=== PATIENT | female | born 1990 | race Caucasian/White ===

== ENCOUNTER → 2016-11-28 | Outpatient (CLI) | payer BC | END | disposition home or self-care (01) | LOC: MW.NM 06:47 | PROVIDERS: ATTEND Psychiatry & Neurology Neuromuscular Medicine | DX: Z91.89 Other specified personal risk factors, not elsewhere classified (principal) | CPT/HCPCS: 95816 ==

== ENCOUNTER 2017-05-26 18:38 | Emergency (ER) | payer BC ==
--- NOTE | 2017-05-26 19:03 | EDM.PDOC ---
ED HPI GENERAL MEDICAL PROBLEM - General Stated Complaint: BLOOD CLOT IN LT LEG Time Seen by Provider: 05/26/17 18:55 - History of Present Illness INITIAL COMMENTS - FREE TEXT/NARRATIVE: HISTORY AND PHYSICAL: History of present illness: Patient is a 19-year-old female is brought to 37 weeks who presents with a concern of left leg swelling and mild discomfort she denies history of DVT denies shortness of breath chest pain abdominal pain vaginal discharge bleeding or other complaints states her has been doing well she is followed by Dr. Acosta who she spoke with the and I recommended referral to the ER. Review of systems: As per history of present illness and below otherwise all systems reviewed and negative. Past medical history: As per history of present illness and as reviewed below otherwise noncontributory. Surgical history: As per history of present illness and as reviewed below otherwise noncontributory. Social history: No reported history of drug or alcohol abuse. Family history: As per history of present illness and as reviewed below otherwise noncontributory. Physical exam: HEENT: Atraumatic, normocephalic, pupils reactive, negative for conjunctival pallor or scleral icterus, mucous membranes moist, throat clear, neck supple, nontender, trachea midline. Lungs: Clear to auscultation, breath sounds equal bilaterally, chest nontender. Heart: S1S2, regular, negative for clicks, rubs, or JVD. Abdomen: Soft, gravid uterus consistent with dates noted nontender heart tones pending. Negative for masses or hepatosplenomegaly. Negative for costovertebral tenderness. Pelvis: Stable nontender. Genitourinary: Deferred. Rectal: Deferred. Extremities: Atraumatic, negative for cords or calf pain. Neurovascular unremarkable. Patient does have some edema to her left leg with some mild tenderness posteriorly this is not well localized is no cords appreciated Neuro: Awake, alert, oriented. Cranial nerves II through XII unremarkable. Cerebellum unremarkable. Motor and sensory unremarkable throughout. Exam nonfocal. Diagnostics: heart tones venous Doppler left lower extremity Therapeutics: To be determined Impression: #137 week intrauterine #2 left lower extremity edema Definitive disposition and diagnosis as appropriate pending reevaluation and review of above. - Related Data Allergies Allergy/AdvReac Type Severity Reaction Status Date / Time No Known Allergies Allergy Verified 05/26/17 19:03 Home Meds: Home Meds . 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: Psychiatric History: Reports: Anxiety - Past Surgical History Cardiovascular Surgical History: Reports: Other (See Below) Other Cardiovascular Surgeries/Procedures: heart surgery as an for "ronda " 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 GI Surgical History: Reports: Other (See Below) Other GI Surgeries/Procedures: hernia repair as infant Female Surgical History: Reports: Section Social & Family History - Family History Neurological: Reports: Cerebral Palsy, CVA Psychiatric: Reports: Autism - Tobacco Use Smoking Status *Q: Never Smoker Years of Tobacco use: 8 Used Tobacco, but Quit: No Second Hand Smoke Exposure: No - Alcohol Use Days Per Week of Alcohol Use: 2 Number of Drinks Per Day: 7 Total Drinks Per Week: 14 - Recreational Drug Use Recreational Drug Use: No ED ROS GENERAL - Review of Systems Review Of Systems: ROS reveals no pertinent complaints other than HPI. ED EXAM, GENERAL - Physical Exam Exam: See Below (See dictation) Course - Vital Signs Last Recorded V/S: Last Vital Signs Temp 36.8 C 05/26/17 19:00 Pulse 91 05/26/17 19:00 Resp 18 05/26/17 19:00 BP 122/88 05/26/17 19:00 Pulse Ox 96 05/26/17 19:00 - Orders/Labs/Meds Orders: Active Orders 24 hr Category Date Time Status Venous Doppler Lwr Ext Lt [US] Stat Exams 05/26/17 19:00 Taken Departure - Departure Time of Disposition: 20:25 Disposition: Home, Self-Care 01 Condition: Good Clinical Impression: Third trimester , Peripheral edema - Discharge Information Additional Instructions: The following information is given to patients seen in the emergency department who are being discharged to home. This information is to outline your options for follow-up care. We provide all patients seen in our emergency department with a follow-up referral. The need for follow-up, as well as the timing and circumstances, are variable depending upon the specifics of your emergency department visit. If you don't have a primary care physician on staff, we will provide you with a referral. We always advise you to contact your personal physician following an emergency department visit to inform them of the circumstance of the visit and for follow-up with them and/or the need for any referrals to a consulting specialist. The emergency department will also refer you to a specialist when appropriate. This referral assures that you have the opportunity for followup care with a specialist. All of these measure are taken in an effort to provide you with optimal care, which includes your followup. Under all circumstances we always encourage you to contact your private physician who remains a resource for coordinating your care. When calling for followup care, please make the office aware that this follow-up is from your recent emergency room visit. If for any reason you are refused follow-up, please contact the [facility] emergency department at and asked to speak to the emergency department charge nurse. Follow-up primary medical doctor/OB gynecology 1-2 days return as needed as discussed - My Orders Last 24 Hours: My Active Orders 05/26/17 19:00 Venous Doppler Lwr Ext Lt [US] Stat - Assessment/Plan Last 24 Hours: My Active Orders 05/26/17 19:00 Venous Doppler Lwr Ext Lt [US] Stat
[2017-05-26 20:55] VITALS: BP 117/75
--- NOTE | 2017-05-27 10:08 | US ---
EXAM DATE: 05/26/17 PATIENT'S AGE: 27 Patient: FINN VALADEZ Facility: [place], [place] Site . Site : 1990 Study: US Extremity Left [id number] 7:41:28 PM Ordering Physician: Doctor Lares Final Report: INDICATION: PAIN LEFT CALF TECHNIQUE: Ultrasound venous duplex lower left extremity. Compression venous exam was performed using aguillon-scale, color Doppler, and spectral Doppler analysis. COMPARISON: None FINDINGS: Sonographic imaging demonstrates the left common femoral, deep femoral, superficial femoral, popliteal, posterior tibial and greater saphenous and the contralateral right common femoral veins to be fully compressible with normal color Doppler blood flow. IMPRESSION: No evidence of deep venous thrombosis within the left lower extremity. Dictated by Hang Díaz MD @ 05/26/2017 8:02:43 PM Dictated by: Hang Díaz MD @ 05/26/2017 20:04:40 (Electronic Signature) Report Signed by Proxy. [email or web address]
== END 2017-05-26 20:36 | disposition home or self-care (01) ==
LOC: MW.ED 18:38
DX: O12.03 Gestational edema, third trimester (principal); Z3A.37 37 weeks gestation of pregnancy
CPT/HCPCS: 93971-26-LT; 93971-LT; 99282; 99283-25

== ENCOUNTER 2017-06-09 05:12 | Inpatient (IN) | payer BC ==
--- NOTE | 2017-05-09 22:34 | PCM.SN ---
- Free Text/Narrative Note: 27yo @ 34w6d ( d,8) , Previous X 1presenting with contraction. patient seen in triage 1 week ago with same complains . she recieved terbutaline. Patient examined at bedside. Speculum;- cervical os closed . VE: Ft/L/P . FFN negative , EFM:- cat 1 , toco; irregular contraction VSS; 125/64 A/P: contraction , Hx of Previous Plan; Nifedipine X 2 doses , contraction improved patient felt better Betamethasone X 2 doses labor precautions give Follow up in clinic as scheduled GBS , GC and FFN done
[2017-06-09] MEDS ORDERED: ceFAZolin 2 GM in Premix Bag 1 BAG IV ONE (05:20)
[2017-06-09] MEDS ORDERED: Sodium Chloride 0.9% 10 ML Syringe FLUSH PRN (05:20)
[2017-06-09] MEDS ORDERED: Sodium Chloride 0.9% 2.5 ML Syringe FLUSH PRN (05:20)
[2017-06-09] MEDS ORDERED: Lactated Ringers 1,000 ML IV SCH (05:30)
[2017-06-09] MEDS ORDERED: Citric Acid/Sodium Citrate Solution 30 ML Cup PO SCH (05:30)
[2017-06-09] MEDS ORDERED: Oxytocin/0.9 % Sodium Chloride 30 UNIT/500 ML BAG IV SCH (05:30)
[2017-06-09] MEDS ORDERED: Sodium Chloride 0.9% 20 ML ONE (07:13)
[2017-06-09] MEDS ORDERED: ceFAZolin 1 GM Vial ONE (07:13)
[2017-06-09] MEDS ORDERED: Oxytocin 10 Units/1 ML SDV ONE (07:13)
[2017-06-09] MEDS ORDERED: Morphine PF 10 MG/10 ML SDV ONE (07:13)
[2017-06-09] MEDS ORDERED: Ondansetron 4 MG/2 ML SDV ONE (07:13)
[2017-06-09] MEDS ORDERED: Water For Injection, Sterile 20 ML ONE (07:15)
--- NOTE | 2017-06-09 07:43 | PCM.PREANE ---
Preanesthetic Assessment - Anesthesia/Transfusion/Family Hx Anesthesia History: Prior Anesthesia Without Reaction Transfusion History: No Prior Transfusion(s) - Review of Systems General: No Symptoms Pulmonary: No Symptoms Cardiovascular: No Symptoms Gastrointestinal: No Symptoms Neurological: No Symptoms Other: Reports: None - Physical Assessment NPO Status Date: 06/09/17 NPO Status Time: 00:01 Height: 5 ft Weight: 71.668 kg ASA Class: 2 Mental Status: Alert & Oriented x3 Airway Class: Mallampati = 2 Dentition: Reports: Normal Dentition Thyro-Mental Finger Breadths: 3 Mouth Opening Finger Breadths: 3 ROM/Head Extension: Full Lungs: Clear to Auscultation, Normal Respiratory Effort Cardiovascular: Regular Rate, Regular Rhythm - Lab Values: Laboratory Last Values WBC 10.69 K/uL (4.0-11.0) 06/09/17 05:51 RBC 4.01 M/uL (4.30-5.90) L 06/09/17 05:51 Hgb 13.2 g/dL (12.0-16.0) 06/09/17 05:51 Hct 37.9 % (36.0-46.0) 06/09/17 05:51 MCV 94.5 fL (80.0-98.0) 06/09/17 05:51 MCH 32.9 pg (27.0-32.0) H 06/09/17 05:51 MCHC 34.8 g/dL (31.0-37.0) 06/09/17 05:51 RDW Std Deviation 44.0 fl (28.0-62.0) 06/09/17 05:51 RDW Coeff of Veronica 13 % (11.0-15.0) 06/09/17 05:51 Plt Count 166 K/uL (150-400) 06/09/17 05:51 MPV 10.70 fL (7.40-12.00) 06/09/17 05:51 Nucleated RBC % 0.0 /100WBC 06/09/17 05:51 Nucleated RBCs # 0 K/uL 06/09/17 05:51 Blood Type O POSITIVE 06/09/17 05:51 Antibody Screen NEGATIVE 06/09/17 05:51 - Allergies Allergies/Adverse Reactions: Allergies Allergy/AdvReac Type Severity Reaction Status Date / Time No Known Allergies Allergy Verified 05/26/17 19:03 - Acknowledgements Anesthesia Type Planned: General Anesthesia, Spinal Pt an Appropriate Candidate for the Planned Anesthesia: Yes Alternatives and Risks of Anesthesia Discussed w Pt/Guardian: Yes Pt/Guardian Understands and Agrees with Anesthesia Plan: Yes PreAnesthesia Questionnaire - Past Health History Medical/Surgical History: Denies Medical/Surgical History HEENT History: Reports: Other (See Below) Other HEENT History: wears glasses for reading Cardiovascular History: Reports: Heart Murmur, Other (See Below) Other Cardiovascular History: states has heart surgery as an due to murmur Respiratory History: Reports: Other (See Below) (Previous smoker, quit 7 months ago) Gastrointestinal History: Reports: GERD (controlled on PO Rx) Genitourinary History: Reports: None KIDNEY TRIMMER History: Reports: : 2 Para: 1 LMP (Approximate): Musculoskeletal History: Reports: None Neurological History: Reports: Seizure Other Neuro History: last seizure was 3 to 4 months ago Psychiatric History: Reports: Anxiety Endocrine/Metabolic History: Reports: None Hematologic History: Reports: None Immunologic History: Reports: None Oncologic (Cancer) History: Reports: None Dermatologic History: Reports: None - Past Surgical History Head Surgeries/Procedures: Reports: None GI Surgical History: Reports: Hernia, Inguinal Female Surgical History: Reports: Section - SUBSTANCE USE Smoking Status *Q: Never Smoker Tobacco Use Within Last Twelve Months: Cigarettes Second Hand Smoke Exposure: No Days Per Week of Alcohol Use: 2 Number of Drinks Per Day: 7 Total Drinks Per Week: 14 Recreational Drug Use History: No - HOME MEDS Home Medications: Home Meds Lansoprazole [Prevacid] 30 mg PO DAILY PRN 06/05/17 [History] Ondansetron [Zofran] 1 tab PO ASDIRECTED PRN 06/05/17 [History] Vit W-Ca,Fe,FA(<1 mg) [ Vitamins] 1 tab PO DAILY 06/05/17 [ History] lamoTRIgine [Lamotrigine] 2 tab PO BID 06/05/17 [History] - CURRENT (IN HOUSE) MEDS Current Meds: Current Medications Citric Acid/Sodium Citrate (Bicitra Solution) 30 ml PO .ONCE NIKKO Last Admin: 06/09/17 07:37 Dose: 30 ml Lactated Ringer's (Ringers, Lactated) 1,000 mls @ 500 mls/hr IV .BOLUS NIKKO Last Admin: 06/09/17 07:32 Dose: 500 mls/hr Oxytocin/Sodium Chloride (Oxytocin 30 Unit/500 Ml-Ns) 30 unit in 500 mls @ 250 mls/hr IV TITRATE NIKKO Sodium Chloride (Saline Flush) 10 ml FLUSH ASDIRECTED PRN PRN Reason: Keep Vein Open Sodium Chloride (Saline Flush) 2.5 ml FLUSH ASDIRECTED PRN PRN Reason: Keep Vein Open Discontinued Medications Cefazolin Sodium (Ancef) Confirm Administered Dose 2 gm .ROUTE .STK-MED ONE Stop: 06/09/17 07:14 Cefazolin Sodium/Dextrose 2 gm (/ Premix) 50 mls @ 100 mls/hr IV ONETIME ONE Stop: 06/09/17 05:49 Sodium Chloride (Normal Saline) Confirm Administered Dose 20 mls @ as directed .ROUTE .STK-MED ONE Stop: 06/09/17 07:14 Sterile Water (Sterile Water For Injection) Confirm Administered Dose 20 mls @ as directed .ROUTE .STK-MED ONE Stop: 06/09/17 07:16 Morphine Sulfate (Duramorph Pf) Confirm Administered Dose 10 mg .ROUTE .STK-MED ONE Stop: 06/09/17 07:14 Ondansetron HCl (Zofran) Confirm Administered Dose 4 mg .ROUTE .STK-MED ONE Stop: 06/09/17 07:14 Oxytocin (Pitocin) Confirm Administered Dose 20 unit .ROUTE .STK-MED ONE Stop: 06/09/17 07:14
[2017-06-09] MEDS ORDERED: ePHEDrine 50 MG/ML SDV ONE ×2 (08:09→09:40)
[2017-06-09] MEDS ORDERED: Octyl 2-Cyanoacrylate 1 Tube ONE (08:47)
--- NOTE | 2017-06-09 08:57 | PCM.OPNOTE ---
- General Post-Op/Procedure Note Date of Surgery/Procedure: 06/09/17 Operative Procedure(s): repeat low transverse Findings: Liveborn female 04/12 weight 4265 grams, normal pelvis with bladder adhesions to the lower uterine segment, left side. Pre Op Diagnosis: 39 weeks prior , desires repeat. Post-Op Diagnosis: Same Anesthesia Technique: Spinal Primary Surgeon: Elizabeth Acosta Anesthesia Provider: Telly Pearson Receiving Clerk: Reynaldo Felder Pathology: none Fluid Replacement, Intraop: 1,200 EBL in mLs: 500 Complications: None Known Condition: Good
[2017-06-09] MEDS ORDERED: Bisacodyl 10 MG Supp RECTAL PRN (08:58)
[2017-06-09] MEDS ORDERED: Lanolin 100% Cream 7 GM Tube TOP PRN (08:58)
[2017-06-09] MEDS ORDERED: Ondansetron 4 MG/2 ML SDV IV PRN (08:58)
[2017-06-09] MEDS ORDERED: Acetaminophen/oxyCODONE 325-5 MG Tab PO PRN (08:58)
[2017-06-09] MEDS ORDERED: diphenhydrAMINE 50 MG/ML SDV IVPUSH PRN ×2 (08:58→09:04)
[2017-06-09] MEDS ORDERED: Nalbuphine 10 MG/1 ML Vial IVPUSH PRN (09:04)
[2017-06-09] MEDS ORDERED: Naloxone 0.4 MG/ML Syringe IVPUSH PRN (09:04)
[2017-06-09] MEDS ORDERED: fentaNYL 100 MCG/2 ML SDV IVPUSH PRN (09:04)
[2017-06-09] MEDS: Ketorolac 30 MG/ML SDV IVPUSH SCH ×3 (09:37→20:43)
--- NOTE | 2017-06-09 09:53 | PCM.POSTAN ---
POST ANESTHESIA ASSESSMENT - MENTAL STATUS Mental Status: Alert, Oriented - RESPIRATORY Respiratory Status: Respiratory Rate WNL, Airway Patent, O2 Saturation Stable - CARDIOVASCULAR CV Status: Pulse Rate WNL, Blood Pressure Stable - GASTROINTESTINAL GI Status: No Symptoms - POST OP HYDRATION Hydration Status: Adequate & Stable
--- NOTE | 2017-06-09 10:20 | OR ---
SURGEON: Elizabeth Acosta M.D. DATE OF PROCEDURE: 06/09/2017 PREOPERATIVE DIAGNOSIS: A 39-week intrauterine , prior delivery, desires repeat. POSTOPERATIVE DIAGNOSIS: A 39-week intrauterine , prior delivery, desires repeat and macrosomia. ANESTHESIA: Spinal. ESTIMATED BLOOD LOSS: 500 mL. FLUIDS: 1200 mL crystalloid. FINDINGS: Liveborn female, score 9 and 9, weighing 4265 g. Normal-appearing uterus, tubes, and ovaries with adherent bladder on the right lower uterine segment. COMPLICATIONS: None known. DISPOSITION: Stable to recovery. BRIEF HISTORY: This is a 27-year-old female. She is G2, P1. She presents at 39 weeks' gestation for a repeat delivery with risks discussed including bleeding, infection, injury to bowel, bladder, blood vessels, or other organs, and risk of thromboembolic event. Understanding all these risks, she does desire to proceed. DESCRIPTION OF PROCEDURE: With the patient in left tilt position, under adequate spinal analgesia, the abdomen was prepped with chlorhexidine and draped in usual fashion for abdominal surgery. SCDs were in place. Hernandez catheter had been placed and she had received 2 g of Ancef IV. After an appropriate time-out was held, documentation of adequate analgesia was performed and the cicatrix was excised with a scalpel. The transverse curvilinear incision was then carried through the subcutaneous tissue to the fascia, which was scored transversely in the midline. The fascial incision was extended laterally using curved Bae scissors. Fascia was elevated from the underlying rectus muscle using sharp and blunt dissection. The finger was used to enter the abdominal cavity and there were no adhesions to the anterior abdominal wall. This incision was extended using sharp and blunt dissection. The Paulo-O retractor was placed. The visceroperitoneum over the lower uterine segment was incised to develop an adequate bladder flap. The transverse curvilinear incision was made over the lower uterine segment with a scalpel. A finger was used to enter the amniotic cavity. Clear fluid was noted. The incision was extended using blunt dissection. The head was delivered via the uterine incision. The was bulb suctioned by nose and mouth with subsequent delivery of the 's shoulders and body without any difficulty. The was bulb suctioned again. Cord was clamped x2 and cut, and the infant was handed to the nurse in attendance at delivery. The infant is a liveborn female, score 9 and 9, weighing 4265 g. Cord blood was collected for cord ABGs as well as routine cord blood sampling. The placenta was removed with fundal massage and the uterus was cleaned with a dry laparotomy tape. The cervix was opened with a ring forceps. The uterine incision was closed with a running lock suture of 0 Polysorb followed by an imbricating layer of 0 Polysorb. There were noted to be some adhesions on the right lower uterine segment. I did have the bladder back filled to delineate the upper limit of the bladder and this was well below the incision line, therefore, the bladder was again released. Any further areas of bleeding were controlled with 2 figure-of- eight sutures. The posterior cul-de-sac pericolic gutters were cleaned and irrigated. The uterine incision was carefully inspected and it was completely hemostatic. The Paulo-O retractor was removed. The uterine incision was again inspected and it remained hemostatic. The rectus muscle and peritoneum were loosely approximated in the midline using a running mattress suture of 0 Polysorb. The posterior aspect of the fascia was inspected and was hemostatic; therefore, the fascial incision was closed with a running suture of 0 Polysorb. Subcutaneous tissue was irrigated. Any areas of bleeding that were noted were cauterized. The skin was closed with a running subcuticular suture of 3-0 Polysorb followed by skin glue. Final sponge, needle, and instrument counts were reported as correct. There were no known complications. The patient was transferred to recovery in good condition. SHAY NEELY /[id number]
[2017-06-09] MEDS: Docusate Sodium 100 MG Cap PO SCH ×2 (10:35→20:42)
[2017-06-09] MEDS ORDERED: fentaNYL 100 MCG/2 ML SDV ONE (10:49)
[2017-06-09] MEDS: Lactated Ringers 1,000 ML IV SCH ×2 (11:42→19:27)
[2017-06-09] MEDS: lamoTRIgine 100 MG Tab PO SCH (20:42)
[2017-06-09] MEDS: Acetaminophen/oxyCODONE 325-5 MG Tab PO PRN (20:43)
[2017-06-09] MEDS ORDERED: lamoTRIgine 25 MG Tab PO SCH ×2 (21:00)
[2017-06-10] MEDS: Acetaminophen/oxyCODONE 325-5 MG Tab PO PRN ×5 (01:10→23:25)
[2017-06-10] MEDS: Ketorolac 30 MG/ML SDV IVPUSH SCH ×2 (02:37→09:06)
--- NOTE | 2017-06-10 08:17 | PCM.PNPP ---
<Karen Maurice - Last Filed: 06/10/17 08:14> - General Info Date of Service: 06/10/17 Functional Status: Reports: Pain Controlled, Tolerating Diet, Ambulating, Urinating - Review of Systems General: Denies: Fever, Weakness, Fatigue Pulmonary: Denies: Shortness of Breath, Pleuritic Chest Pain, Cough Cardiovascular: Denies: Chest Pain, Palpitations, Dyspnea on Exertion Gastrointestinal: Denies: Abdominal Pain Genitourinary: Denies: Dysuria - General Info Date of Service: 06/10/17 - Patient Data Vital Signs - Most Recent: Last Vital Signs Temp 37.0 C 06/10/17 07:00 Pulse 89 06/10/17 08:00 Resp 16 06/10/17 08:00 BP 106/60 06/10/17 07:00 Pulse Ox 98 06/10/17 08:00 Weight - Most Recent: 71.668 kg I&O - Last 24 Hours: Intake & Output 06/09/17 06/10/17 06/10/17 22:59 06:59 14:59 Intake Total 804 Output Total 620 300 Balance 184 -300 Lab Results - Last 24 Hours: Laboratory Results - last 24 hr 06/10/17 Range/Units 04:52 Hgb 10.8 L (12.0-16.0) g/dL Hct 32.2 L (36.0-46.0) % Med Orders - Current: Current Medications Bisacodyl (Dulcolax) 10 mg RECTAL .ONCE PRN PRN Reason: Constipation Diphenhydramine HCl (Benadryl) 25 mg IVPUSH Q6H PRN PRN Reason: Itching or Nausea Diphenhydramine HCl (Benadryl) 25 mg IVPUSH Q4H PRN PRN Reason: Itching Stop: 06/10/17 09:05 Docusate Sodium (Colace) 100 mg PO BID NIKKO Last Admin: 06/09/17 20:42 Dose: 100 mg Emollient Ointment (Lansinoh Hpa) 0 gm TOP ASDIRECTED PRN PRN Reason: Sore Nipples Fentanyl (Sublimaze) 50 mcg IVPUSH Q45M PRN PRN Reason: Pain (severe 7-10) Stop: 06/10/17 09:05 Lactated Ringer's (Ringers, Lactated) 1,000 mls @ 125 mls/hr IV ASDIRECTED [facility] Last Admin: 06/09/17 19:27 Dose: 125 mls/hr Ibuprofen (Motrin) 800 mg PO Q8H PRN PRN Reason: mild pain or fever Ketorolac Tromethamine (Toradol) 30 mg IVPUSH Q6H NIKKO Stop: 06/10/17 09:01 Last Admin: 06/10/17 02:37 Dose: 30 mg Lamotrigine (Lamotrigine) 100 mg PO BEDTIME NIKKO Last Admin: 06/09/17 20:42 Dose: 100 mg Nalbuphine HCl (Nubain) 5 mg IVPUSH Q3H PRN PRN Reason: Pruritis Stop: 06/10/17 09:05 Last Admin: 06/09/17 09:33 Dose: 5 mg Naloxone HCl (Narcan) 0.1 mg IVPUSH ONETIME PRN PRN Reason: Respiratory Depression Stop: 06/10/17 09:05 Ondansetron HCl (Zofran) 4 mg IV Q4H PRN PRN Reason: Nausea/Vomiting Oxycodone/Acetaminophen (Percocet 325-5 Mg) 1 tab PO Q4H PRN PRN Reason: Pain (moderate 4-6) Oxycodone/Acetaminophen (Percocet 325-5 Mg) 2 tab PO Q4H PRN PRN Reason: Pain (moderate 4-6) Last Admin: 06/10/17 05:02 Dose: 2 tab Prenat Multivit/[place]/Iron/Folic Ac ( Mtr) 1 each PO DAILY NIKKO Discontinued Medications Cefazolin Sodium (Ancef) Confirm Administered Dose 2 gm .ROUTE .STK-MED ONE Stop: 06/09/17 07:14 Citric Acid/Sodium Citrate (Bicitra Solution) 30 ml PO .ONCE NIKKO Last Admin: 06/09/17 07:37 Dose: 30 ml Ephedrine Sulfate (Ephedrine Sulfate) Confirm Administered Dose 50 mg .ROUTE .STK-MED ONE Stop: 06/09/17 08:10 Ephedrine Sulfate (Ephedrine Sulfate) Confirm Administered Dose 50 mg .ROUTE .STK-MED ONE Stop: 06/09/17 09:41 Fentanyl (Sublimaze) Confirm Administered Dose 100 mcg .ROUTE .STK-MED ONE Stop: 06/09/17 10:50 Cefazolin Sodium/Dextrose 2 gm (/ Premix) 50 mls @ 100 mls/hr IV ONETIME ONE Stop: 06/09/17 05:49 Lactated Ringer's (Ringers, Lactated) 1,000 mls @ 500 mls/hr IV .BOLUS NIKKO Last Admin: 06/09/17 07:32 Dose: 500 mls/hr Oxytocin/Sodium Chloride (Oxytocin 30 Unit/500 Ml-Ns) 30 unit in 500 mls @ 250 mls/hr IV TITRATE NIKKO Sodium Chloride (Normal Saline) Confirm Administered Dose 20 mls @ as directed .ROUTE .STK-MED ONE Stop: 06/09/17 07:14 Sterile Water (Sterile Water For Injection) Confirm Administered Dose 20 mls @ as directed .ROUTE .STK-MED ONE Stop: 06/09/17 07:16 Lamotrigine (Lamotrigine) 50 mg PO BEDTIME NIKKO Lamotrigine (Lamotrigine) 100 mg PO BEDTIME NIKKO Morphine Sulfate (Duramorph Pf) Confirm Administered Dose 10 mg .ROUTE .STK-MED ONE Stop: 06/09/17 07:14 Octyl Cyanoacrylate (Dermabond Advance) Confirm Administered Dose 1 applic .ROUTE .STK-MED ONE Stop: 06/09/17 08:48 Ondansetron HCl (Zofran) Confirm Administered Dose 4 mg .ROUTE .STK-MED ONE Stop: 06/09/17 07:14 Oxytocin (Pitocin) Confirm Administered Dose 20 unit .ROUTE .STK-MED ONE Stop: 06/09/17 07:14 Sodium Chloride (Saline Flush) 10 ml FLUSH ASDIRECTED PRN PRN Reason: Keep Vein Open Sodium Chloride (Saline Flush) 2.5 ml FLUSH ASDIRECTED PRN PRN Reason: Keep Vein Open - Infant Interaction Infant Disposition, : in Room with Family Interaction: Holding Feeding: Bottle Fed Support Person: - Recovery Exam Fundal Tone: Firm Fundal Level: At Umbilicus Fundal Placement: Midline Lochia Amount: Scant Lochia Color: Rubra/Red Perineum Description: Intact, Minimal Bruising/Swelling Episiotomy/Laceration: None Bladder Status: Voiding Urinary Elimination: Voided - Exam General: Alert, Oriented Neck: Supple Lungs: Clear to Auscultation, Normal Respiratory Effort Cardiovascular: Regular Rate, Regular Rhythm GI/Abdominal Exam: Normal Bowel Sounds, Soft, Non-Tender, No Distention - Problem List & Annotations (1) delivery delivered SNOMED Code(s): 999870599 Code(s): O82 - ENCOUNTER FOR DELIVERY WITHOUT INDICATION Status: Acute Current Visit: Yes - Problem List Review Problem List Initiated/Reviewed/Updated: Yes - Assessment Assessment:: POD#1 s/p RLTCS. Minimal pain and lochia. Bottle fed infant. Anticipate discharge home tomorrow. - Plan Plan:: Continue routine post-op cares. Aim for discharge home tomorrow AM. <Elizabeth Acosta - Last Filed: 06/10/17 13:21> - Patient Data Vital Signs - Most Recent: Last Vital Signs Temp 37.0 C 06/10/17 07:00 Pulse 80 06/10/17 09:00 Resp 16 06/10/17 09:00 BP 106/60 06/10/17 07:00 Pulse Ox 97 06/10/17 09:00 I&O - Last 24 Hours: Intake & Output 06/09/17 06/10/17 06/10/17 22:59 06:59 14:59 Intake Total 804 Output Total 620 300 Balance 184 -300 Lab Results - Last 24 Hours: Laboratory Results - last 24 hr 06/10/17 Range/Units 04:52 Hgb 10.8 L (12.0-16.0) g/dL Hct 32.2 L (36.0-46.0) % Med Orders - Current: Current Medications Bisacodyl (Dulcolax) 10 mg RECTAL .ONCE PRN PRN Reason: Constipation Diphenhydramine HCl (Benadryl) 25 mg IVPUSH Q6H PRN PRN Reason: Itching or Nausea Docusate Sodium (Colace) 100 mg PO BID [facility] Last Admin: 06/10/17 09:07 Dose: 100 mg Emollient Ointment (Lansinoh Hpa) 0 gm TOP ASDIRECTED PRN PRN Reason: Sore Nipples Lactated Ringer's (Ringers, Lactated) 1,000 mls @ 125 mls/hr IV ASDIRECTED [facility] Last Admin: 06/09/17 19:27 Dose: 125 mls/hr Ibuprofen (Motrin) 800 mg PO Q8H PRN PRN Reason: mild pain or fever Lamotrigine (Lamotrigine) 100 mg PO BEDTIME NIKKO Last Admin: 06/09/17 20:42 Dose: 100 mg Ondansetron HCl (Zofran) 4 mg IV Q4H PRN PRN Reason: Nausea/Vomiting Oxycodone/Acetaminophen (Percocet 325-5 Mg) 1 tab PO Q4H PRN PRN Reason: Pain (moderate 4-6) Oxycodone/Acetaminophen (Percocet 325-5 Mg) 2 tab PO Q4H PRN PRN Reason: Pain (moderate 4-6) Last Admin: 06/10/17 05:02 Dose: 2 tab Prenat Multivit/[place]/Iron/Folic Ac ( Mtr) 1 each PO DAILY [facility] Last Admin: 06/10/17 09:07 Dose: 1 each Discontinued Medications Cefazolin Sodium (Ancef) Confirm Administered Dose 2 gm .ROUTE .STK-MED ONE Stop: 06/09/17 07:14 Citric Acid/Sodium Citrate (Bicitra Solution) 30 ml PO .ONCE NIKKO Last Admin: 06/09/17 07:37 Dose: 30 ml Diphenhydramine HCl (Benadryl) 25 mg IVPUSH Q4H PRN PRN Reason: Itching Stop: 06/10/17 09:05 Ephedrine Sulfate (Ephedrine Sulfate) Confirm Administered Dose 50 mg .ROUTE .STK-MED ONE Stop: 06/09/17 08:10 Ephedrine Sulfate (Ephedrine Sulfate) Confirm Administered Dose 50 mg .ROUTE .STK-MED ONE Stop: 06/09/17 09:41 Fentanyl (Sublimaze) 50 mcg IVPUSH Q45M PRN PRN Reason: Pain (severe 7-10) Stop: 06/10/17 09:05 Fentanyl (Sublimaze) Confirm Administered Dose 100 mcg .ROUTE .STK-MED ONE Stop: 06/09/17 10:50 Cefazolin Sodium/Dextrose 2 gm (/ Premix) 50 mls @ 100 mls/hr IV ONETIME ONE Stop: 06/09/17 05:49 Lactated Ringer's (Ringers, Lactated) 1,000 mls @ 500 mls/hr IV .BOLUS NIKKO Last Admin: 06/09/17 07:32 Dose: 500 mls/hr Oxytocin/Sodium Chloride (Oxytocin 30 Unit/500 Ml-Ns) 30 unit in 500 mls @ 250 mls/hr IV TITRATE NIKKO Sodium Chloride (Normal Saline) Confirm Administered Dose 20 mls @ as directed .ROUTE .STK-MED ONE Stop: 06/09/17 07:14 Sterile Water (Sterile Water For Injection) Confirm Administered Dose 20 mls @ as directed .ROUTE .STK-MED ONE Stop: 06/09/17 07:16 Ketorolac Tromethamine (Toradol) 30 mg IVPUSH Q6H NIKKO Stop: 06/10/17 09:01 Last Admin: 06/10/17 09:06 Dose: 30 mg Lamotrigine (Lamotrigine) 50 mg PO BEDTIME NIKKO Lamotrigine (Lamotrigine) 100 mg PO BEDTIME NIKKO Morphine Sulfate (Duramorph Pf) Confirm Administered Dose 10 mg .ROUTE .STK-MED ONE Stop: 06/09/17 07:14 Nalbuphine HCl (Nubain) 5 mg IVPUSH Q3H PRN PRN Reason: Pruritis Stop: 06/10/17 09:05 Last Admin: 06/09/17 09:33 Dose: 5 mg Naloxone HCl (Narcan) 0.1 mg IVPUSH ONETIME PRN PRN Reason: Respiratory Depression Stop: 06/10/17 09:05 Octyl Cyanoacrylate (Dermabond Advance) Confirm Administered Dose 1 applic .ROUTE .STK-MED ONE Stop: 06/09/17 08:48 Ondansetron HCl (Zofran) Confirm Administered Dose 4 mg .ROUTE .STK-MED ONE Stop: 06/09/17 07:14 Oxytocin (Pitocin) Confirm Administered Dose 20 unit .ROUTE .STK-MED ONE Stop: 06/09/17 07:14 Sodium Chloride (Saline Flush) 10 ml FLUSH ASDIRECTED PRN PRN Reason: Keep Vein Open Sodium Chloride (Saline Flush) 2.5 ml FLUSH ASDIRECTED PRN PRN Reason: Keep Vein Open - Problem List Review Problem List Initiated/Reviewed/Updated: Yes - My Orders Last 24 Hours: My Active Orders 06/09/17 21:00 lamoTRIgine 100 mg PO BEDTIME 06/09/17 Dinner Regular Diet [DIET] 06/10/17 09:00 Vit/FA/Fe Fumarate/Se [ MTR] 1 each PO DAILY - Plan Plan:: patient was seen and examined, agree with above,
[2017-06-10] MEDS: Prenatal Multivitamin and Multimineral with Iron Tab PO SCH (09:07)
[2017-06-10] MEDS: Docusate Sodium 100 MG Cap PO SCH ×2 (09:07→20:53)
[2017-06-10] MEDS: Ibuprofen 800 MG Tab PO PRN (18:05)
[2017-06-10] MEDS: lamoTRIgine 100 MG Tab PO SCH (20:53)
[2017-06-11] MEDS: Acetaminophen/oxyCODONE 325-5 MG Tab PO PRN (03:30)
[2017-06-11] MEDS: Ibuprofen 800 MG Tab PO PRN (05:10)
[2017-06-11] MEDS: Docusate Sodium 100 MG Cap PO SCH (08:23)
[2017-06-11] MEDS: Prenatal Multivitamin and Multimineral with Iron Tab PO SCH (08:23)
--- NOTE | 2017-06-11 08:44 | PCM.PNPP ---
- General Info Date of Service: 06/18/17 Functional Status: Reports: Pain Controlled, Tolerating Diet, Ambulating, Urinating - Review of Systems General: Reports: No Symptoms HEENT: Reports: No Symptoms Pulmonary: Reports: No Symptoms Cardiovascular: Reports: No Symptoms Gastrointestinal: Reports: No Symptoms Genitourinary: Reports: No Symptoms Musculoskeletal: Reports: No Symptoms Skin: Reports: Rash (maculopapular rash on abdomen in pattern of the binder) Neurological: Reports: No Symptoms Psychiatric: Reports: No Symptoms - Patient Data Vital Signs - Most Recent: Last Vital Signs Temp 37.2 C 06/11/17 06:59 Pulse 80 06/11/17 06:59 Resp 18 06/11/17 06:59 BP 129/61 06/11/17 06:59 Pulse Ox 99 06/11/17 06:59 Weight - Most Recent: 71.668 kg Med Orders - Current: Current Medications Bisacodyl (Dulcolax) 10 mg RECTAL .ONCE PRN PRN Reason: Constipation Diphenhydramine HCl (Benadryl) 25 mg IVPUSH Q6H PRN PRN Reason: Itching or Nausea Docusate Sodium (Colace) 100 mg PO BID [facility] Last Admin: 06/11/17 08:23 Dose: 100 mg Emollient Ointment (Lansinoh Hpa) 0 gm TOP ASDIRECTED PRN PRN Reason: Sore Nipples Lactated Ringer's (Ringers, Lactated) 1,000 mls @ 125 mls/hr IV ASDIRECTED [facility] Last Admin: 06/09/17 19:27 Dose: 125 mls/hr Ibuprofen (Motrin) 800 mg PO Q8H PRN PRN Reason: mild pain or fever Last Admin: 06/11/17 05:10 Dose: 800 mg Lamotrigine (Lamotrigine) 100 mg PO BEDTIME [facility] Last Admin: 06/10/17 20:53 Dose: 100 mg Ondansetron HCl (Zofran) 4 mg IV Q4H PRN PRN Reason: Nausea/Vomiting Oxycodone/Acetaminophen (Percocet 325-5 Mg) 1 tab PO Q4H PRN PRN Reason: Pain (moderate 4-6) Oxycodone/Acetaminophen (Percocet 325-5 Mg) 2 tab PO Q4H PRN PRN Reason: Pain (moderate 4-6) Last Admin: 06/11/17 03:30 Dose: 2 tab Prenat Multivit/[place]/Iron/Folic Ac ( Mtr) 1 each PO DAILY NIKKO Last Admin: 06/11/17 08:23 Dose: 1 each Discontinued Medications Cefazolin Sodium (Ancef) Confirm Administered Dose 2 gm .ROUTE .STK-MED ONE Stop: 06/09/17 07:14 Citric Acid/Sodium Citrate (Bicitra Solution) 30 ml PO .ONCE NIKKO Last Admin: 06/09/17 07:37 Dose: 30 ml Diphenhydramine HCl (Benadryl) 25 mg IVPUSH Q4H PRN PRN Reason: Itching Stop: 06/10/17 09:05 Ephedrine Sulfate (Ephedrine Sulfate) Confirm Administered Dose 50 mg .ROUTE .STK-MED ONE Stop: 06/09/17 08:10 Ephedrine Sulfate (Ephedrine Sulfate) Confirm Administered Dose 50 mg .ROUTE .STK-MED ONE Stop: 06/09/17 09:41 Fentanyl (Sublimaze) 50 mcg IVPUSH Q45M PRN PRN Reason: Pain (severe 7-10) Stop: 06/10/17 09:05 Fentanyl (Sublimaze) Confirm Administered Dose 100 mcg .ROUTE .STK-MED ONE Stop: 06/09/17 10:50 Cefazolin Sodium/Dextrose 2 gm (/ Premix) 50 mls @ 100 mls/hr IV ONETIME ONE Stop: 06/09/17 05:49 Lactated Ringer's (Ringers, Lactated) 1,000 mls @ 500 mls/hr IV .BOLUS [facility] Last Admin: 06/09/17 07:32 Dose: 500 mls/hr Oxytocin/Sodium Chloride (Oxytocin 30 Unit/500 Ml-Ns) 30 unit in 500 mls @ 250 mls/hr IV TITRATE NIKKO Sodium Chloride (Normal Saline) Confirm Administered Dose 20 mls @ as directed .ROUTE .STK-MED ONE Stop: 06/09/17 07:14 Sterile Water (Sterile Water For Injection) Confirm Administered Dose 20 mls @ as directed .ROUTE .STK-MED ONE Stop: 06/09/17 07:16 Ketorolac Tromethamine (Toradol) 30 mg IVPUSH Q6H NIKKO Stop: 06/10/17 09:01 Last Admin: 06/10/17 09:06 Dose: 30 mg Lamotrigine (Lamotrigine) 50 mg PO BEDTIME NIKKO Lamotrigine (Lamotrigine) 100 mg PO BEDTIME NIKKO Morphine Sulfate (Duramorph Pf) Confirm Administered Dose 10 mg .ROUTE .STK-MED ONE Stop: 06/09/17 07:14 Nalbuphine HCl (Nubain) 5 mg IVPUSH Q3H PRN PRN Reason: Pruritis Stop: 06/10/17 09:05 Last Admin: 06/09/17 09:33 Dose: 5 mg Naloxone HCl (Narcan) 0.1 mg IVPUSH ONETIME PRN PRN Reason: Respiratory Depression Stop: 06/10/17 09:05 Octyl Cyanoacrylate (Dermabond Advance) Confirm Administered Dose 1 applic .ROUTE .STK-MED ONE Stop: 06/09/17 08:48 Ondansetron HCl (Zofran) Confirm Administered Dose 4 mg .ROUTE .STK-MED ONE Stop: 06/09/17 07:14 Oxytocin (Pitocin) Confirm Administered Dose 20 unit .ROUTE .STK-MED ONE Stop: 06/09/17 07:14 Sodium Chloride (Saline Flush) 10 ml FLUSH ASDIRECTED PRN PRN Reason: Keep Vein Open Sodium Chloride (Saline Flush) 2.5 ml FLUSH ASDIRECTED PRN PRN Reason: Keep Vein Open - Infant Interaction Disposition, : [place] in Room with Family Interaction: Holding Infant Feeding: Bottle Fed Infant Support Person: - Recovery Exam Fundal Tone: Firm Fundal Level: 1 Fingerbreadths Below Umbilicus Fundal Placement: Midline Lochia Amount: Scant Lochia Color: Rubra/Red Perineum Description: Intact, Minimal Bruising/Swelling Episiotomy/Laceration: None Bladder Status: Voiding Urinary Elimination: Voided - Exam General: Alert, Oriented Neck: Supple Lungs: Clear to Auscultation, Normal Respiratory Effort Cardiovascular: Regular Rate, Regular Rhythm GI/Abdominal Exam: Normal Bowel Sounds, Soft, Non-Tender, No Organomegaly, No Distention, No Abnormal Bruit Extremities: Normal Inspection, Non-Tender, No Pedal Edema Skin: Warm, Dry, Intact, Rash (maculopapular rash above incision to area above umbilicus.) Wound/Incisions: Healing Well Neurological: No New Focal Deficit Psy/Mental Status: Alert, Normal Affect, Normal Mood - Problem List & Annotations (1) delivery delivered SNOMED Code(s): 865897725 Code(s): O82 - ENCOUNTER FOR DELIVERY WITHOUT INDICATION Status: Acute Current Visit: Yes - Problem List Review Problem List Initiated/Reviewed/Updated: Yes - My Orders Last 24 Hours: My Active Orders 06/10/17 09:00 Vit/FA/Fe Fumarate/Se [ MTR] 1 each PO DAILY 06/11/17 08:33 Ready for Discharge [RC] PER UNIT ROUTINE - Assessment Assessment:: POD#2 s/p RLTCS. Minimal pain and lochia. Discharge instructions reviewed. Rash on abdomen appears to be from abdominal binder or drape in OR - Plan Plan:: Dicharge instructions reviewed. May use 1%hydrocortisone cream OTC for rash. If spreads to chest or arms she should call and will change pain medications.
[2017-06-11 09:13] VITALS: BP 114/73
== END 2017-06-11 10:55 | disposition home or self-care (01) | DRG 540 ==
LOC: MW.OB 05:12
PROVIDERS: ADMIT Obstetrics & Gynecology; ATTEND Obstetrics & Gynecology
PROC: 10D00Z1 Extraction of Products of Conception, Low, Open Approach (ICD-10-PCS; principal; 2017-06-09)
DX: O34.211 Maternal care for low transverse scar from previous cesarean delivery (principal); N85.8 Other specified noninflammatory disorders of uterus; Z3A.39 39 weeks gestation of pregnancy; Z37.0 Single live birth; O75.89 Other specified complications of labor and delivery; G40.909 Epilepsy, unspecified, not intractable, without status epilepticus; Z79.899 Other long term (current) drug therapy; Z87.891 Personal history of nicotine dependence
CPT/HCPCS: 01961; 36415; 59025; 85014; 85018; 85027; 86850; 86900; 86901; A9270-GY; J0690; J1885; J2270; J2300; J2405; J2590; J3010; J7120

== ENCOUNTER 2019-03-22 08:26 | Observation (INO) | payer BC ==
[2019-03-22] MEDS: Lactated Ringers 1,000 ML IV SCH ×2 (10:18→12:45)
[2019-03-22] MEDS ORDERED: Terbutaline 1 MG/ML SDV SUBCUT ONE (15:51)
== END 2019-03-22 18:08 | disposition home or self-care (01) ==
LOC: MW.OBCHECK 08:26 → MW.OB 08:31 → MW.OBCHECK 09:06 → MW.OB 09:07
PROVIDERS: ADMIT Obstetrics & Gynecology; ATTEND Obstetrics & Gynecology
DX: O47.03 False labor before 37 completed weeks of gestation, third trimester (principal); O99.413 Diseases of the circulatory system complicating pregnancy, third trimester; R00.0 Tachycardia, unspecified; Z3A.49 Greater than 42 weeks gestation of pregnancy; Z88.8 Allergy status to other drugs, medicaments and biological substances
CPT/HCPCS: 59025; 81003; 96360; 96361; 96372; G0378; J3105; J7120

== ENCOUNTER 2019-04-16 09:55 | Inpatient (IN) | payer BC ==
[2019-04-16] MEDS ORDERED: ceFAZolin 2 GM in Premix Bag 1 BAG IV ONE (10:06)
[2019-04-16] MEDS ORDERED: Citric Acid/Sodium Citrate Solution 30 ML Cup PO ONE (10:06)
[2019-04-16] MEDS ORDERED: Sodium Chloride 0.9% 10 ML Syringe FLUSH PRN (10:06)
[2019-04-16] MEDS ORDERED: Sodium Chloride 0.9% 2.5 ML Syringe FLUSH PRN (10:06)
[2019-04-16] MEDS ORDERED: Sodium Chloride 0.9% 10 ML SDV IV PRN (10:06)
[2019-04-16] MEDS ORDERED: Oxytocin/0.9 % Sodium Chloride 30 UNIT/500 ML BAG IV SCH (10:15)
[2019-04-16] MEDS ORDERED: Ondansetron 4 MG/2 ML SDV ONE (10:22)
[2019-04-16] MEDS ORDERED: Oxytocin 10 Units/1 ML SDV ONE (10:22)
[2019-04-16] MEDS ORDERED: Morphine PF 10 MG/10 ML SDV ONE (10:22)
[2019-04-16] MEDS ORDERED: Lidocaine 2% 5 ML SDV ONE (10:22)
[2019-04-16] MEDS: Lactated Ringers 1,000 ML IV SCH ×2 (10:30→11:32)
[2019-04-16] MEDS ORDERED: Octyl 2-Cyanoacrylate 1 Tube ONE (11:33)
--- NOTE | 2019-04-16 11:41 | PCM.PREANE ---
Preanesthetic Assessment - Anesthesia/Transfusion/Family Hx Anesthesia History: Prior Anesthesia Without Reaction Family History of Anesthesia Reaction: No Transfusion History: No Prior Transfusion(s) - Review of Systems General: No Symptoms Pulmonary: No Symptoms Cardiovascular: No Symptoms Gastrointestinal: No Symptoms Neurological: No Symptoms Other: Reports: None - Physical Assessment NPO Status Date: 04/16/19 NPO Status Time: 00:05 Height: 1.52 m Weight: 77.111 kg ASA Class: 1 Mental Status: Alert & Oriented x3 Dentition: Reports: Normal Dentition ROM/Head Extension: Full - Lab Values: Laboratory Last Values WBC 8.67 K/uL (4.0-11.0) 04/16/19 10:33 RBC 4.06 M/uL (4.30-5.90) L 04/16/19 10:33 Hgb 13.0 g/dL (12.0-16.0) 04/16/19 10:33 Hct 38.7 % (36.0-46.0) 04/16/19 10:33 MCV 95.3 fL (80.0-98.0) 04/16/19 10:33 MCH 32.0 pg (27.0-32.0) 04/16/19 10:33 MCHC 33.6 g/dL (31.0-37.0) 04/16/19 10:33 RDW Std Deviation 45.7 fl (28.0-62.0) 04/16/19 10:33 RDW Coeff of Veronica 13 % (11.0-15.0) 04/16/19 10:33 Plt Count 143 K/uL (150-400) L 04/16/19 10:33 MPV 10.60 fL (7.40-12.00) 04/16/19 10:33 Nucleated RBC % 0.0 /100WBC 04/16/19 10:33 Nucleated RBCs # 0 K/uL 04/16/19 10:33 Blood Type O POSITIVE 04/16/19 10:33 Antibody Screen NEGATIVE 04/16/19 10:33 - Allergies Allergies/Adverse Reactions: Allergies Allergy/AdvReac Type Severity Reaction Status Date / Time ibuprofen [From Motrin] Allergy Hives Verified 04/16/19 11:22 - Anesthesia Plan Pre-Op Medication Ordered: Antacids - Acknowledgements Anesthesia Type Planned: Spinal Pt an Appropriate Candidate for the Planned Anesthesia: Yes Alternatives and Risks of Anesthesia Discussed w Pt/Guardian: Yes Pt/Guardian Understands and Agrees with Anesthesia Plan: Yes PreAnesthesia Questionnaire - Past Health History Medical/Surgical History: Denies Medical/Surgical History HEENT History: Reports: Other (See Below) Other HEENT History: wears glasses Cardiovascular History: Reports: Heart Murmur Other Cardiovascular History: states has heart surgery as an infant due to murmur Respiratory History: Reports: None Gastrointestinal History: Reports: GERD Other Gastrointestinal History: heartburn with Genitourinary History: Reports: None [employer]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: Musculoskeletal History: Reports: None Neurological History: Reports: Seizure Other Neuro History: states had seizures with previous Psychiatric History: Reports: None Endocrine/Metabolic History: Reports: None Hematologic History: Reports: None Immunologic History: Reports: None Oncologic (Cancer) History: Reports: None Dermatologic History: Reports: None - Past Surgical History Head Surgeries/Procedures: Reports: None Cardiovascular Surgical History: Reports: Other (See Below) Other Cardiovascular Surgeries/Procedures: heart surgery as an infant for "ronda " 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 Respiratory Surgical History: Reports: None GI Surgical History: Reports: Other (See Below) Other GI Surgeries/Procedures: hernia repair as infant Female Surgical History: Reports: Section Endocrine Surgical History: Reports: None Neurological Surgical History: Reports: None Musculoskeletal Surgical History: Reports: None Oncologic Surgical History: Reports: None - SUBSTANCE USE Smoking Status *Q: Former Smoker Tobacco Use Within Last Twelve Months: Cigarettes Second Hand Smoke Exposure: Yes Recreational Drug Use History: No - HOME MEDS Home Medications: Home Meds Vit Calc,Iron,Folic [ Vitamins] 1 tab PO DAILY 06/05/17 [ History] Omeprazole Magnesium [Prilosec Otc] 20 mg PO DAILY 04/12/19 [History] - CURRENT (IN HOUSE) MEDS Current Meds: Current Medications Lactated Ringer's (Ringers, Lactated) 1,000 mls @ 500 mls/hr IV BOLUS NIKKO Last Admin: 04/16/19 11:32 Dose: 500 mls/hr Oxytocin/Sodium Chloride (Oxytocin 30 Unit/500 Ml-Ns) 30 unit in 500 mls @ 250 mls/hr IV TITRATE NIKKO Sodium Chloride (Saline Flush) 10 ml FLUSH ASDIRECTED PRN PRN Reason: Keep Vein Open Sodium Chloride (Saline Flush) 2.5 ml FLUSH ASDIRECTED PRN PRN Reason: Keep Vein Open Sodium Chloride (Normal Saline) 10 ml IV ASDIRECTED PRN PRN Reason: IV Use Discontinued Medications Citric Acid/Sodium Citrate (Bicitra Solution) 30 ml PO ONETIME ONE Stop: 04/16/19 10:07 Last Admin: 04/16/19 11:33 Dose: 30 ml Cefazolin Sodium/Dextrose 2 gm (/ Premix) 50 mls @ 100 mls/hr IV ONETIME ONE Stop: 04/16/19 10:35 Lidocaine (Xylocaine-Mpf 2%) Confirm Administered Dose 5 ml .ROUTE .STK-MED ONE Stop: 04/16/19 10:23 Morphine Sulfate (Duramorph Pf) Confirm Administered Dose 10 mg .ROUTE .STK-MED ONE Stop: 04/16/19 10:23 Octyl Cyanoacrylate (Dermabond Advance) Confirm Administered Dose 1 applic .ROUTE .STK-MED ONE Stop: 04/16/19 11:34 Ondansetron HCl (Zofran) Confirm Administered Dose 4 mg .ROUTE .STK-MED ONE Stop: 04/16/19 10:23 Oxytocin (Pitocin) Confirm Administered Dose 20 unit .ROUTE .STK-MED ONE Stop: 04/16/19 10:23
[2019-04-16] MEDS ORDERED: ceFAZolin 1 GM Vial ONE (11:52)
[2019-04-16] MEDS ORDERED: Sodium Chloride 0.9% 20 ML ONE (11:52)
[2019-04-16] MEDS ORDERED: Nalbuphine 10 MG/1 ML Vial IVPUSH PRN (11:54)
[2019-04-16] MEDS ORDERED: fentaNYL 100 MCG/2 ML SDV IVPUSH PRN (11:54)
--- NOTE | 2019-04-16 13:15 | PCM.OPNOTE ---
- General Post-Op/Procedure Note Date of Surgery/Procedure: 04/16/19 Operative Procedure(s): repeat low transverse Findings: Liveborn female AGPAR 8/9 weight is pending bladder peritoneum with extensive adhesions to the lower uterine segment. Pre Op Diagnosis: 39 weeks previously , decline VTOL Post-Op Diagnosis: Same Anesthesia Technique: Spinal Primary Surgeon: Elizabeth Acosta Secondary Surgeon: Sandra Bae Anesthesia Provider: Reynaldo Pedersen Assistant Branch Manager: Steven Barnhart Pathology: none Fluid Replacement, Intraop: 1,600 Output, Urine Amount: 300 EBL in mLs: 600 Complications: None Known. Condition: Good
[2019-04-16] MEDS ORDERED: diphenhydrAMINE 50 MG/ML SDV IVPUSH PRN (13:16)
[2019-04-16] MEDS ORDERED: Acetaminophen/oxyCODONE 325-5 MG Tab PO PRN (13:16)
[2019-04-16] MEDS ORDERED: Bisacodyl 10 MG Supp RECTAL PRN (13:16)
[2019-04-16] MEDS ORDERED: Ondansetron 4 MG/2 ML SDV IVPUSH PRN (13:16)
[2019-04-16] MEDS ORDERED: Lanolin 100% Cream 7 GM Tube TOP PRN (13:16)
[2019-04-16] MEDS ORDERED: Lactated Ringers 1,000 ML IV SCH (13:30)
--- NOTE | 2019-04-16 14:38 | PCM.POSTAN ---
POST ANESTHESIA ASSESSMENT - MENTAL STATUS Mental Status: Alert - VITAL SIGNS Vital Signs: Last Vital Signs Temp 36.1 C 04/16/19 13:36 Pulse 55 L 04/16/19 14:25 Resp 16 04/16/19 14:25 BP 102/57 L 04/16/19 14:25 Pulse Ox 94 L 04/16/19 14:25 - RESPIRATORY Respiratory Status: Respiratory Rate WNL - CARDIOVASCULAR CV Status: Pulse Rate WNL - GASTROINTESTINAL GI Status: No Symptoms - POST OP HYDRATION Hydration Status: Adequate & Stable
--- NOTE | 2019-04-16 16:11 | PCM.PRNOTE ---
- Free Text/Narrative Note: Anes Note I was called by RN, who reported the patient is having mild nausea, and mild blurred vision, sporadically. The patient was assessed. BP is stable, HR is stable. Zofran 4 mg given IV for c'o vague nausea. Matthew reports she had similar vision changes in 2017 while she was , and was being followed by a neurologist for very mild seizure like activity. I have asked community health nurse staff to notify Dr Spicer about this, and to recommend the patient be evaluated by Dr Bowman. Time with patient [phone]. Steven Barnhart CRNA
[2019-04-16] MEDS ORDERED: Sodium Chloride 0.9% 500 ML IV ONE (16:15)
[2019-04-16] MEDS: Acetaminophen/oxyCODONE 325-5 MG Tab PO PRN ×2 (16:33→22:30)
[2019-04-16] MEDS: Docusate Sodium 100 MG Cap PO SCH (21:34)
--- NOTE | 2019-04-16 22:31 | OR ---
SURGEON: Elizabeth Acosta M.D. DATE OF PROCEDURE: 04/16/2019 PREOPERATIVE DIAGNOSES: 1. 39 weeks' intrauterine . 2. Previous delivery x2. POSTOPERATIVE DIAGNOSES: 1. 39 weeks' intrauterine . 2. Previous delivery x2. PROCEDURE: Repeat low-transverse section. PRIMARY SURGEON: Elizabeth Acosta M.D. ANESTHESIA: Spinal. ESTIMATED BLOOD LOSS: 600 mL. FLUIDS: 1600 mL crystalloid. URINE OUTPUT: 300 mL. FINDINGS: A live born female, score of 8 and 9, weighing 4200 g. The lower uterine segment was very thin. There were dense adhesions between the bladder and the lower uterine segment. Normal-appearing tubes and ovaries. COMPLICATIONS: None known. DISPOSITION: Stable to recovery. BRIEF HISTORY: This is a 29-year-old female, G3, P 2-0-0-2. She presents at 39 weeks' gestation for a repeat delivery with essentially uncomplicated care. Risks were discussed including bleeding; infection; injury to bowel, bladder, blood vessels, or other organs; risk of thromboembolic event; and risk of anesthesia. Understanding all of these risks, she does desire to proceed. DESCRIPTION OF PROCEDURE: With the patient in the left tilt position, under adequate spinal anesthesia, the abdomen was prepped with chlorhexidine and draped in the usual fashion for abdominal surgery. SCDs were in place. Hernandez catheter had been placed. An appropriate time-out was held. She had received 2 g of Ancef IV. After documentation of adequate analgesia, a transverse curvilinear incision was made 2 cm cephalad from the pubic symphysis, carried through the subcutaneous tissue to the fascia, which was scored transversely in the midline. The fascial incision was extended laterally using curved Bae scissors. The fascia was elevated from the underlying rectus muscle. There were dense adhesions, which were using sharp and blunt dissection, cephalad and caudad from the transverse incision. The rectus muscles were in the midline, and the peritoneum was entered sharply. A finger was placed into the peritoneal cavity. The incision was extended using sharp and blunt dissection. The Paulo O C- section retractor was placed. There were dense adhesions over the lower uterine segment, which were incised and the bladder was carefully dissected downward and a transverse curvilinear incision was made over the lower uterine segment with a scalpel and a finger was used to enter the amniotic cavity. The incision was extended using blunt dissection. The head was delivered via the uterine incision. The was bulb suctioned by nose and mouth, and the remainder of the 's body was delivered without any difficulty. After the cord had ceased to pulsate, it was doubly clamped and cut. The infant was handed to the nurse in attendance at delivery. The is a liveborn female. score of 8 and 9, weighing 4200 g. Cord blood was collected for cord ABGs as well as routine cord blood sampling. Pitocin was initiated after delivery of the infant to assist with the delivery of the placenta, which was delivered spontaneously. The uterus was then cleaned with a dry laparotomy tape. The cervix was opened with a ring forceps. The uterine incision was closed with a running lock suture of 0 Polysorb followed by an imbricating layer of 0 Polysorb. It was very difficult to delineate the extent of the bladder adhesion over the lower uterine segment. Therefore, the bladder was filled with 120 mL of sterile milk, and a careful dissection was performed to ensure that the peritoneum surrounding the bladder was completely free of the region close to the incision. This being completed, the bladder was well delineated. It was clearly intact, and there was no adhesion to the area of the incision. The incision was hemostatic. The tubes and ovaries were inspected. The pericolic gutters were cleaned with wet laparotomy tape. The incision was again inspected and was hemostatic; therefore, the Paulo O retractor was removed. The peritoneum and rectus muscle were loosely approximated in midline using a running mattress suture of 0 Polysorb. The posterior aspect of the fascia was inspected carefully and areas of bleeding that were noted were cauterized. Once there was complete hemostasis on this layer, the fascia was closed with a running suture of 0 Polysorb followed by subcuticular irrigation and any areas of bleeding that were noted were cauterized. The skin was closed with running subcuticular suture of 3-0 Monocryl followed by Dermabond. Final sponge, needle, and instrument counts were correct. There were no known complications. Mother and baby are in LDR in good condition. SHAY / CHIN /[id number]
[2019-04-17] MEDS: Acetaminophen/oxyCODONE 325-5 MG Tab PO PRN ×4 (03:58→20:17)
--- NOTE | 2019-04-17 07:43 | PCM.POSTAN ---
POST ANESTHESIA ASSESSMENT - MENTAL STATUS Mental Status: Alert - VITAL SIGNS Vital Signs: Last Vital Signs Temp 36.6 C 04/17/19 03:00 Pulse 87 04/17/19 07:00 Resp 16 04/17/19 07:00 BP 124/67 04/17/19 03:00 Pulse Ox 98 04/17/19 07:00 - RESPIRATORY Respiratory Status: Respiratory Rate WNL - CARDIOVASCULAR CV Status: Pulse Rate WNL - GASTROINTESTINAL GI Status: No Symptoms - POST OP HYDRATION Hydration Status: Adequate & Stable
--- NOTE | 2019-04-17 07:44 | PCM48HPAN ---
Post Anesthesia Note - EVALUATION WITHIN 48HRS OF ANESTHETIC Vital Signs in Normal Range: Yes Patient Participated in Evaluation: Yes Respiratory Function Stable: Yes Airway Patent: Yes Cardiovascular Function Stable: Yes Hydration Status Stable: Yes Pain Control Satisfactory: Yes Nausea and Vomiting Control Satisfactory: Yes Mental Status Recovered: Yes (Minor vision issues have completely resolved) Vital Signs: Last Vital Signs Temp 36.6 C 04/17/19 03:00 Pulse 87 04/17/19 07:00 Resp 16 04/17/19 07:00 BP 124/67 04/17/19 03:00 Pulse Ox 98 04/17/19 07:00
[2019-04-17] MEDS: Docusate Sodium 100 MG Cap PO SCH ×2 (08:47→20:18)
--- NOTE | 2019-04-17 08:58 | PCM.PNPP ---
- General Info Date of Service: 04/17/19 Subjective Update: 29 yo P3 s/p repeat POD 1 , ambulating , voiding , tolerating regular diet , Functional Status: Reports: Pain Controlled, Tolerating Diet, Ambulating, Urinating - Review of Systems General: Reports: No Symptoms HEENT: Reports: No Symptoms Pulmonary: Reports: No Symptoms Cardiovascular: Reports: No Symptoms Gastrointestinal: Reports: No Symptoms Genitourinary: Reports: No Symptoms Musculoskeletal: Reports: No Symptoms Skin: Reports: No Symptoms Neurological: Reports: No Symptoms Psychiatric: Reports: No Symptoms - General Info Date of Service: 04/17/19 - Patient Data Vital Signs - Most Recent: Last Vital Signs Temp 36.7 C 04/17/19 08:07 Pulse 92 04/17/19 08:07 Resp 15 04/17/19 08:07 BP 106/55 L 04/17/19 08:07 Pulse Ox 93 L 04/17/19 08:07 Weight - Most Recent: 77.111 kg I&O - Last 24 Hours: Intake & Output 04/16/19 04/17/19 04/17/19 22:59 06:59 14:59 Intake Total 1999 Output Total 390 1750 Balance -390 250 Lab Results - Last 24 Hours: Laboratory Results - last 24 hr 04/16/19 04/16/19 04/16/19 Range/Units 10:33 10:33 12:34 WBC 8.67 (4.0-11.0) K/uL RBC 4.06 L (4.30-5.90) M/uL Hgb 13.0 (12.0-16.0) g/dL Hct 38.7 (36.0-46.0) % MCV 95.3 (80.0-98.0) fL MCH 32.0 (27.0-32.0) pg MCHC 33.6 (31.0-37.0) g/dL RDW Std Deviation 45.7 (28.0-62.0) fl RDW Coeff of Veronica 13 (11.0-15.0) % Plt Count 143 L (150-400) K/uL MPV 10.60 (7.40-12.00) fL Nucleated RBC % 0.0 /100WBC Nucleated RBCs # 0 K/uL Cord ABG pH 7.234 (7.18-7.38) Cord ABG Base Excess -5 (-10--2) Cord VBG pH (7.25-7.45) Cord VBG Base Excess (-10--2) Blood Type O POSITIVE Antibody Screen NEGATIVE 04/16/19 04/17/19 Range/Units 12:34 05:30 WBC (4.0-11.0) K/uL RBC (4.30-5.90) M/uL Hgb 11.4 L (12.0-16.0) g/dL Hct 34.0 L (36.0-46.0) % MCV (80.0-98.0) fL MCH (27.0-32.0) pg MCHC (31.0-37.0) g/dL RDW Std Deviation (28.0-62.0) fl RDW Coeff of Veronica (11.0-15.0) % Plt Count (150-400) K/uL MPV (7.40-12.00) fL Nucleated RBC % /100WBC Nucleated RBCs # K/uL Cord ABG pH (7.18-7.38) Cord ABG Base Excess (-10--2) Cord VBG pH 7.350 (7.25-7.45) Cord VBG Base Excess -4 (-10--2) Blood Type Antibody Screen Med Orders - Current: Current Medications Bisacodyl (Dulcolax) 10 mg RECTAL ONETIME PRN PRN Reason: Constipation Diphenhydramine HCl (Benadryl) 25 mg IVPUSH Q6H PRN PRN Reason: Itching or Nausea Docusate Sodium (Colace) 100 mg PO BID [facility] Last Admin: 04/17/19 08:47 Dose: 100 mg Emollient Ointment (Lansinoh Hpa) 0 gm TOP ASDIRECTED PRN PRN Reason: Sore Nipples Last Admin: 04/17/19 06:10 Dose: 1 tube Fentanyl (Sublimaze) 50 mcg IVPUSH Q5M PRN PRN Reason: Pain (severe 7-10) Stop: 04/17/19 11:54 Lactated Ringer's (Ringers, Lactated) 1,000 mls @ 125 mls/hr IV ASDIRECTED [facility] Last Admin: 04/16/19 17:54 Dose: 125 mls/hr Nalbuphine HCl (Nubain) 2.5 mg IVPUSH Q3H PRN PRN Reason: Pruritis Stop: 04/17/19 11:54 Ondansetron HCl (Zofran) 4 mg IVPUSH Q4H PRN PRN Reason: Nausea/Vomiting Oxycodone/Acetaminophen (Percocet 325-5 Mg) 1 tab PO ONETIME PRN PRN Reason: Pain (moderate 4-6) Last Admin: 04/16/19 16:33 Dose: 1 tab Oxycodone/Acetaminophen (Percocet 325-5 Mg) 1 tab PO Q4H PRN PRN Reason: Pain (moderate 4-6) Oxycodone/Acetaminophen (Percocet 325-5 Mg) 2 tab PO Q4H PRN PRN Reason: Pain (moderate 4-6) Last Admin: 04/17/19 03:58 Dose: 2 tab Discontinued Medications Cefazolin Sodium (Ancef) Confirm Administered Dose 2 gm .ROUTE .STK-MED ONE Stop: 04/16/19 11:53 Citric Acid/Sodium Citrate (Bicitra Solution) 30 ml PO ONETIME ONE Stop: 04/16/19 10:07 Last Admin: 04/16/19 11:33 Dose: 30 ml Cefazolin Sodium/Dextrose 2 gm (/ Premix) 50 mls @ 100 mls/hr IV ONETIME ONE Stop: 04/16/19 10:35 Lactated Ringer's (Ringers, Lactated) 1,000 mls @ 500 mls/hr IV [facility] Last Admin: 04/16/19 11:32 Dose: 500 mls/hr Oxytocin/Sodium Chloride (Oxytocin 30 Unit/500 Ml-Ns) 30 unit in 500 mls @ 250 mls/hr IV TITRATE NIKKO Sodium Chloride (Normal Saline) Confirm Administered Dose 20 mls @ as directed .ROUTE .STK-MED ONE Stop: 04/16/19 11:53 Sodium Chloride (Normal Saline) 500 mls @ 500 mls/hr IV .BOLUS ONE Stop: 04/16/19 17:14 Last Admin: 04/16/19 16:36 Dose: 500 mls/hr Lidocaine (Xylocaine-Mpf 2%) Confirm Administered Dose 5 ml .ROUTE .STK-MED ONE Stop: 04/16/19 10:23 Morphine Sulfate (Duramorph Pf) Confirm Administered Dose 10 mg .ROUTE .STK-MED ONE Stop: 04/16/19 10:23 Octyl Cyanoacrylate (Dermabond Advance) Confirm Administered Dose 1 applic .ROUTE .STK-MED ONE Stop: 04/16/19 11:34 Ondansetron HCl (Zofran) Confirm Administered Dose 4 mg .ROUTE .STK-MED ONE Stop: 04/16/19 10:23 Oxytocin (Pitocin) Confirm Administered Dose 20 unit .ROUTE .STK-MED ONE Stop: 04/16/19 10:23 Sodium Chloride (Saline Flush) 10 ml FLUSH ASDIRECTED PRN PRN Reason: Keep Vein Open Sodium Chloride (Saline Flush) 2.5 ml FLUSH ASDIRECTED PRN PRN Reason: Keep Vein Open Sodium Chloride (Normal Saline) 10 ml IV ASDIRECTED PRN PRN Reason: IV Use - Interaction Support Person: - Recovery Exam Fundal Tone: Firm Fundal Level: 1 Fingerbreadths Above Umbilicus Fundal Placement: Midline Lochia Amount: Small Lochia Color: Rubra/Red Perineum Description: Intact, Minimal Bruising/Swelling, Other (see below) Other Perinuem Description: +3 bilateral edema Episiotomy/Laceration: None Bladder Status: Voiding Urinary Elimination: Voided - Exam General: Alert HEENT: Pupils Equal Neck: Supple Lungs: Clear to Auscultation Cardiovascular: Regular Rate, Regular Rhythm GI/Abdominal Exam: Normal Bowel Sounds Extremities: Normal Inspection Wound/Incisions: Dressing Dry and Intact Neurological: No New Focal Deficit Psy/Mental Status: Alert - Problem List & Annotations (1) delivery delivered SNOMED Code(s): 075095471 Code(s): O82 - ENCOUNTER FOR DELIVERY WITHOUT INDICATION Status: Acute Current Visit: No - Problem List Review Problem List Initiated/Reviewed/Updated: Yes - Assessment Assessment:: 29 yo P3 s/p repeat POD1 , ambulating , voiding and tolerating regular diet - Plan Plan:: Routine and pain control Discharge home tomorrow
[2019-04-17] MEDS: Simethicone 80 MG Tab.Chew PO PRN ×2 (11:58→20:23)
[2019-04-18 08:03] VITALS: BP 110/75; PULSE 87
[2019-04-18] MEDS: Docusate Sodium 100 MG Cap PO SCH (08:06)
[2019-04-18] MEDS: Acetaminophen/oxyCODONE 325-5 MG Tab PO PRN ×2 (08:07)
--- NOTE | 2019-04-18 09:15 | PCM.PNPP ---
- General Info Date of Service: 04/18/19 Subjective Update: 29 yo P3 s/p repeat POD 2 , ambulating , voiding , tolerating regular diet , Functional Status: Reports: Pain Controlled, Tolerating Diet, Ambulating, Urinating - Review of Systems General: Reports: No Symptoms HEENT: Reports: No Symptoms Pulmonary: Reports: No Symptoms Cardiovascular: Reports: No Symptoms Gastrointestinal: Reports: No Symptoms Genitourinary: Reports: No Symptoms Musculoskeletal: Reports: No Symptoms Skin: Reports: No Symptoms Neurological: Reports: No Symptoms Psychiatric: Reports: No Symptoms - General Info Date of Service: 04/18/19 - Patient Data Vital Signs - Most Recent: Last Vital Signs Temp 36.8 C 04/18/19 08:03 Pulse 87 04/18/19 08:03 Resp 19 04/18/19 08:03 BP 110/75 04/18/19 08:03 Pulse Ox 96 04/18/19 08:03 Weight - Most Recent: 77.111 kg Med Orders - Current: Current Medications Bisacodyl (Dulcolax) 10 mg RECTAL ONETIME PRN PRN Reason: Constipation Diphenhydramine HCl (Benadryl) 25 mg IVPUSH Q6H PRN PRN Reason: Itching or Nausea Docusate Sodium (Colace) 100 mg PO BID [facility] Last Admin: 04/18/19 08:06 Dose: 100 mg Emollient Ointment (Lansinoh Hpa) 0 gm TOP ASDIRECTED PRN PRN Reason: Sore Nipples Last Admin: 04/17/19 06:10 Dose: 1 tube Lactated Ringer's (Ringers, Lactated) 1,000 mls @ 125 mls/hr IV ASDIRECTED [facility] Last Admin: 04/16/19 17:54 Dose: 125 mls/hr Ondansetron HCl (Zofran) 4 mg IVPUSH Q4H PRN PRN Reason: Nausea/Vomiting Oxycodone/Acetaminophen (Percocet 325-5 Mg) 1 tab PO ONETIME PRN PRN Reason: Pain (moderate 4-6) Last Admin: 04/17/19 16:03 Dose: 1 tab Oxycodone/Acetaminophen (Percocet 325-5 Mg) 1 tab PO Q4H PRN PRN Reason: Pain (moderate 4-6) Oxycodone/Acetaminophen (Percocet 325-5 Mg) 2 tab PO Q4H PRN PRN Reason: Pain (moderate 4-6) Last Admin: 04/18/19 08:07 Dose: 2 tab Simethicone (Simethicone) 80 mg PO ASDIRECTED PRN PRN Reason: Abdominal Pain Last Admin: 04/17/19 20:23 Dose: 80 mg Discontinued Medications Cefazolin Sodium (Ancef) Confirm Administered Dose 2 gm .ROUTE .STK-MED ONE Stop: 04/16/19 11:53 Citric Acid/Sodium Citrate (Bicitra Solution) 30 ml PO ONETIME ONE Stop: 04/16/19 10:07 Last Admin: 04/16/19 11:33 Dose: 30 ml Fentanyl (Sublimaze) 50 mcg IVPUSH Q5M PRN PRN Reason: Pain (severe 7-10) Stop: 04/17/19 11:54 Cefazolin Sodium/Dextrose 2 gm (/ Premix) 50 mls @ 100 mls/hr IV ONETIME ONE Stop: 04/16/19 10:35 Lactated Ringer's (Ringers, Lactated) 1,000 mls @ 500 mls/hr IV [facility] Last Admin: 04/16/19 11:32 Dose: 500 mls/hr Oxytocin/Sodium Chloride (Oxytocin 30 Unit/500 Ml-Ns) 30 unit in 500 mls @ 250 mls/hr IV TITRATE NIKKO Sodium Chloride (Normal Saline) Confirm Administered Dose 20 mls @ as directed .ROUTE .STK-MED ONE Stop: 04/16/19 11:53 Sodium Chloride (Normal Saline) 500 mls @ 500 mls/hr IV .BOLUS ONE Stop: 04/16/19 17:14 Last Admin: 04/16/19 16:36 Dose: 500 mls/hr Lidocaine (Xylocaine-Mpf 2%) Confirm Administered Dose 5 ml .ROUTE .STK-MED ONE Stop: 04/16/19 10:23 Morphine Sulfate (Duramorph Pf) Confirm Administered Dose 10 mg .ROUTE .STK-MED ONE Stop: 04/16/19 10:23 Nalbuphine HCl (Nubain) 2.5 mg IVPUSH Q3H PRN PRN Reason: Pruritis Stop: 04/17/19 11:54 Octyl Cyanoacrylate (Dermabond Advance) Confirm Administered Dose 1 applic .ROUTE .STK-MED ONE Stop: 04/16/19 11:34 Ondansetron HCl (Zofran) Confirm Administered Dose 4 mg .ROUTE .STK-MED ONE Stop: 04/16/19 10:23 Oxytocin (Pitocin) Confirm Administered Dose 20 unit .ROUTE .STK-MED ONE Stop: 04/16/19 10:23 Sodium Chloride (Saline Flush) 10 ml FLUSH ASDIRECTED PRN PRN Reason: Keep Vein Open Sodium Chloride (Saline Flush) 2.5 ml FLUSH ASDIRECTED PRN PRN Reason: Keep Vein Open Sodium Chloride (Normal Saline) 10 ml IV ASDIRECTED PRN PRN Reason: IV Use - Interaction Support Person: - Recovery Exam Fundal Tone: Firm Fundal Level: 1 Fingerbreadths Below Umbilicus Fundal Placement: Midline Lochia Amount: Scant Lochia Color: Rubra/Red Perineum Description: Intact, Minimal Bruising/Swelling Other Perinuem Description: +3 bilateral edema Episiotomy/Laceration: None Bladder Status: Voiding Urinary Elimination: Voided - Exam General: Alert, Oriented HEENT: Pupils Equal Neck: Supple Lungs: Clear to Auscultation Cardiovascular: Regular Rate, Regular Rhythm GI/Abdominal Exam: Normal Bowel Sounds, Other (pfannestiel skin incision c/d/i) Extremities: Normal Inspection Neurological: No New Focal Deficit Psy/Mental Status: Alert - Problem List & Annotations (1) delivery delivered SNOMED Code(s): 202374133 Code(s): O82 - ENCOUNTER FOR DELIVERY WITHOUT INDICATION Status: Acute Current Visit: No - Problem List Review Problem List Initiated/Reviewed/Updated: Yes - My Orders Last 24 Hours: My Active Orders 04/17/19 09:54 Ready for Discharge [RC] PER UNIT ROUTINE 04/17/19 10:03 Simethicone 80 mg PO ASDIRECTED PRN - Assessment Assessment:: 29 yo P3 s/p repeat POD2 , ambulating , voiding and tolerating regular diet - Plan Plan:: Discharge home today
== END 2019-04-18 11:54 | disposition home or self-care (01) | DRG 540 ==
LOC: MW.OB 09:55
PROVIDERS: ADMIT Obstetrics & Gynecology; ATTEND Obstetrics & Gynecology
PROC: 10D00Z1 Extraction of Products of Conception, Low, Open Approach (ICD-10-PCS; principal; 2019-04-16)
PROC: 0DNW0ZZ Release Peritoneum, Open Approach (ICD-10-PCS; 2019-04-16)
DX: O34.211 Maternal care for low transverse scar from previous cesarean delivery (principal); O99.334 Smoking (tobacco) complicating childbirth; F17.210 Nicotine dependence, cigarettes, uncomplicated; Z3A.39 39 weeks gestation of pregnancy; Z37.0 Single live birth; Z88.8 Allergy status to other drugs, medicaments and biological substances; Z79.899 Other long term (current) drug therapy; O99.62 Diseases of the digestive system complicating childbirth; K66.0 Peritoneal adhesions (postprocedural) (postinfection)
CPT/HCPCS: 36415; 82803; 85014; 85018; 85027; 86850; 86900; 86901; A9270-GY; J0690; J2001; J2270; J2405; J2590; J7040; J7120